=== PATIENT | female | born 1980 | race Caucasian/White ===

== ENCOUNTER 2019-08-14 21:29 | Emergency (ER) | payer SELFPAY ==
[2019-08-14] MEDS ORDERED: HYDROCHLOROTHIAZIDE 12.5 MG TABLET PO ONE (21:46)
[2019-08-14] MEDS ORDERED: LISINOPRIL 10 MG TABLET PO ONE (21:46)
[2019-08-14] MEDS ORDERED: ACETAMINOPHEN 325 MG TABLET PO ONE (21:47)
--- NOTE | 2019-08-14 21:48 | ER Document Report ---
ED Medical Screen (RME) - General Stated Complaint: BLOOD PRESSURE ISSUES Time Seen by Provider: 08/14/19 21:44 Mode of Arrival: Ambulatory Information source: Patient Notes: 38-year-old female patient presents emergency department with concern for elevated blood pressure. Patient reports her blood pressure has been extremely high lately. She has not had her blood pressure medication in 3 weeks. She does report that she is having symptoms of generally not feeling well, headaches and some mild shortness of breath. For this reason labs will be obtained. Patient will also be given a dose of her regular blood pressure medication with plans to discharge her home as long as labs are unremarkable and blood pressure comes down. Heart sounds S1-S2 present, no ectopy noted. Lung sounds clear and equal bilaterally. No acute respiratory distress noted. I have greeted and performed a rapid initial assessment of this patient. A comprehensive ED assessment and evaluation of the patient, analysis of test results and completion of the medical decision making process will be conducted by additional ED providers. I have specifically instructed the patient or family members with the patient to immediately return to any nursing staff should anything change in the patient's condition or with their chief complaint. TRAVEL OUTSIDE OF THE [place] IN LAST 30 DAYS: No - Related Data Allergies/Adverse Reactions: No Known Allergies Allergy (Verified 08/14/19 21:46) Physical Exam - Vital signs Vitals: Temp Pulse Resp BP 98.5 F 85 20 197/122 H 08/14/19 21:35 08/14/19 21:35 08/14/19 21:35 08/14/19 21:35 Course - Vital Signs Vital signs: Temp Pulse Resp BP Pulse Ox 98.5 F 85 20 197/122 H 08/14/19 21:35 08/14/19 21:35 08/14/19 21:35 08/14/19 21:35
--- NOTE | 2019-08-14 22:24 | ER Document Report ---
ED General - General Chief Complaint: High Blood Pressure Stated Complaint: BLOOD PRESSURE ISSUES Time Seen by Provider: 08/14/19 21:44 Mode of Arrival: Ambulatory Information source: Patient Notes: 08/14/19 21:48 - ED Nursing Note by CHARLOTTEJOHN Reece Num: [id number] : 1980 Patient Age: [age] Y/O FEMALE PRESENTS WITH ELEVATED B/P. PT REPORTS THAT SHE HAS BEEN OOUT OF HER MEDS X 3 WEEKS. PT CALLED PCP WHO COULD NOT WORK IN FOR 2 WEEKS. B/P AT TRIAGE 197/122. PROVIDER IN ROOM TO ASSESS. Kelly ORTEGA [id number] female patient presents emergency department with concern for elevated blood pressure. Patient reports her blood pressure has been extremely high lately. She has not had her blood pressure medication in 3 weeks. She does report that she is having symptoms of generally not feeling well, headaches and some mild shortness of breath. For this reason labs will be obtained. Patient will also be given a dose of her regular blood pressure medication with plans to discharge her home as long as labs are unremarkable and blood pressure comes down. Heart sounds S1-S2 present, no ectopy noted. Lung sounds clear and equal bilaterally. No acute respiratory distress noted. my note 38 year old female with request for BP meds renewal; patient has been out of her lisinopril HCTZ and presents with a high blood pressure systolic and diastolic 215/115. Patient also complains of some mild shortness of breath earlier today. Patient is a non-smoker but her smokes outside. She and her children have been trying to get her to stop smoking. Patient denies any chest pain denies any headache denies any neck pain denies any extremity paresthesias or movement disorders. She denies any abdominal pain or back pain. TRAVEL OUTSIDE OF THE [place] IN LAST 30 DAYS: No - HPI Onset: This afternoon Onset/Duration: Sudden Quality of pain: Dull Severity: Mild Pain Level: 1 Associated symptoms: Chest pain Exacerbated by: Denies Relieved by: Denies Similar symptoms previously: No Recently seen / treated by doctor: No - Related Data Allergies/Adverse Reactions: No Known Allergies Allergy (Verified 08/14/19 21:46) Home Medications: LISINOPRIL Past Medical History - General Information source: Patient - Social History Smoking Status: Former Smoker Frequency of alcohol use: None Drug Abuse: None Lives with: Family Family History: Reviewed & Not Pertinent Patient has homicidal ideation: No Review of Systems - Review of Systems Constitutional: No symptoms reported EENT: No symptoms reported Cardiovascular: No symptoms reported Respiratory: See HPI, Short of breath Gastrointestinal: No symptoms reported Genitourinary: No symptoms reported Female Genitourinary: No symptoms reported Musculoskeletal: No symptoms reported Skin: No symptoms reported Hematologic/Lymphatic: No symptoms reported Neurological/Psychological: No symptoms reported Physical Exam - Vital signs Vitals: Temp Pulse Resp BP 98.5 F 85 20 197/122 H 08/14/19 21:35 08/14/19 21:35 08/14/19 21:35 08/14/19 21:35 Interpretation: Hypertensive - General General appearance: Alert - HEENT Head: Normocephalic, Atraumatic Eyes: Normal Pupils: PERRL Nasal: Normal Mouth/Lips: Normal Mucous membranes: Normal Pharynx: Normal Neck: Normal - Respiratory Respiratory status: No respiratory distress Chest status: Nontender Breath sounds: Normal Chest palpation: Normal - Cardiovascular Rhythm: Regular Heart sounds: Normal auscultation Murmur: No - Abdominal Inspection: Normal Distension: No distension Bowel sounds: Normal Tenderness: Nontender Organomegaly: No organomegaly - Rectal Stool: Other - defewrred - Genitourinary Speculum exam: Other - Back Back: Normal - Extremities General upper extremity: Normal inspection General lower extremity: Normal inspection - Neurological Neuro grossly intact: Yes Cognition: Normal Orientation: AAOx4 Navin Coma Scale Eye Opening: Spontaneous Custer Coma Scale Verbal: Oriented Custer Coma Scale Motor: Obeys Commands Custer Coma Scale Total: 15 Speech: Normal Motor strength normal: LUE, RUE, LLE, RLE Sensory: Normal - Psychological Associated symptoms: Normal affect - Skin Skin Temperature: Warm Skin Moisture: Dry Course - Vital Signs Vital signs: Temp Pulse Resp BP Pulse Ox 98.2 F 85 20 217/114 H 99 08/14/19 22:14 08/14/19 21:35 08/14/19 22:14 08/14/19 22:14 08/14/19 22:14 - Laboratory Result Diagrams: 08/14/19 22:10 08/14/19 22:10 Laboratory results interpreted by me: 08/14/19 22:10 Sodium 135.3 L AST 42 H ALT 41 H Critical Care Note - Critical Care Note Total time excluding time spent on procedures (mins): 90 Comments: By 00 30 patient had blood pressure 191/103 and therefore she was given Catapres 0.2 p.o. Discharge - Discharge Clinical Impression: Hypertension Qualifiers: Hypertension type: unspecified Qualified Code(s): I10 - Essential (primary) hypertension Condition: Good Disposition: HOME, SELF-CARE Instructions: Hydrochlorothiazide ([facility]) Additional Instructions: Follow-up with personal doctor return to ER as needed take medicines as directed encourage fluids; avoid cigarette smoke if possible. Please encourage to stop smoking for his health in years. Prescriptions: Lisinopril/Hydrochlorothiazide [Lisinopril-Hctz 20-25 mg Tab] 1 each PO DAILY 30 Days #30 tablet
[2019-08-14 22:34] LABS: ABSOLUTE BASOPHILS # (AUTO) 0.1 10^3/uL (0.0-0.2); ABSOLUTE EOSINOPHILS # (AUTO) 0.1 10^3/uL (0.0-0.6); ABSOLUTE LYMPHOCYTES (AUTO) 2.6 10^3/uL (0.5-4.7); ABSOLUTE MONOCYTES (AUTO) 0.8 10^3/uL (0.1-1.4); EOSINOPHILS % (AUTO) 1.5 % (0-6); HEMATOCRIT 38.7 % (36.0-47.0); HEMOGLOBIN 13.3 g/dL (12.0-15.5); LYMPHOCYTES % (AUTO) 26.9 % (13-45); MEAN CORPUSCULAR HEMOGLOBIN 28.4 pg (27.0-33.4); MEAN CORPUSCULAR HGB CONC 34.4 g/dL (32.0-36.0); MEAN CORPUSCULAR VOLUME 83 fl (80-97); MONOCYTES % (AUTO) 7.9 % (3-13); PLATELET COUNT 326 10^3/uL (150-450); RED BLOOD COUNT 4.69 10^6/uL (3.72-5.28); RED CELL DISTRIBUTION WIDTH 13.4 % (11.5-14.0); SEGMENTED NEUTROPHILS % (AUTO) 62.7 % (42-78); TOTAL CELLS COUNTED % (AUTO) 100 %; WHITE BLOOD COUNT 9.6 10^3/uL (4.0-10.5)
--- NOTE | 2019-08-14 22:41 | EKG REPORT ---
SEVERITY:- NORMAL ECG - SINUS RHYTHM : Confirmed by: Gaurav Alvarado 14-Aug-2019 22:41:00
[2019-08-14 23:06] LABS: ALBUMIN 4.1 g/dL (3.5-5.0); ALKALINE PHOSPHATASE 82 U/L (38-126); ANION GAP 7 (5-19); ASPARTATE AMINO TRANSFERASE 42 U/L (14-36); BILIRUBIN,TOTAL 0.4 mg/dL (0.2-1.3); BLOOD UREA NITROGEN 10 mg/dL (7-20); CARBON DIOXIDE 27 mmol/L (22-30); CHLORIDE 101 mmol/L (98-107); GLUCOSE 99 mg/dL (75-110); POTASSIUM 4.1 mmol/L (3.6-5.0); TOTAL PROTEIN 7.1 g/dL (6.3-8.2)
[2019-08-15] MEDS ORDERED: CLONIDINE HCL 0.2 MG TABLET PO ONE (00:32)
--- NOTE | 2019-08-15 01:31 | RADIOLOGY REPORT (SQ) ---
EXAM DESCRIPTION: XR CHEST 1 VIEW COMPLETED DATE/TME: 08/15/2019 00:52 CLINICAL HISTORY: 38 years Female, sob htn COMPARISON: None. NUMBER OF VIEWS/TECHNIQUE: 1/AP FINDINGS: Adequate lung volume, clear parenchyma, normal cardiac silhouette, and intact bony thorax. IMPRESSION: No acute cardiopulmonary findings.
[2019-08-15 01:40] VITALS: BP 169/100
== END 2019-08-15 01:38 | disposition home or self-care (01) ==
LOC: ER 21:29
DX: I10 Essential (primary) hypertension (principal); Z91.14 Patient's other noncompliance with medication regimen
CPT/HCPCS: 36415; 71045; 80053; 85025; 93005; 93010; 99285